=== PATIENT | male | born 1975 | race Caucasian/White ===

== ENCOUNTER 2023-01-09 10:37 | Emergency (ER) | payer OTHER ==
[~2023-01-09] VITALS: Ht 180.3 cm; Wt 85.7 kg
[2023-01-09 10:46] VITALS: BP 123/76
--- NOTE | 2023-01-09 11:37 | NUR ---
DR MAIER AT BEDSIDE.
--- NOTE | 2023-01-09 12:21 | NUR ---
CALLED DR MACDONALD REGARDING THE PT FOR A TELE PSYCH EVAL PER DR MAIER.
--- NOTE | 2023-01-09 12:30 | NUR ---
LIVIER ADAMS STATES PT IS MEDICALLY CLEARED.
--- NOTE | 2023-01-09 12:37 | NUR ---
SPOKE WITH DR QUIGLEY THAT IS COVERING DR MACDONALD FOR [facility] EVAL HE WILL CALL BACK WHEN HE GETS TO HIS OFFICE.
--- NOTE | 2023-01-09 12:37 | NUR ---
47 Y/O M BIB SELF C/O SI, PLANNED TO DRINK AND TAKE PILLS THIS AM. PMH: BIPOLAR, DEPRESSION
--- NOTE | 2023-01-09 14:22 | NUR ---
CALLED DR LEMA OFFICE, LEFT A MESSAGE REGARDING TELE PHSYC. SPOKE WITH
--- NOTE | 2023-01-09 15:04 | NUR ---
TORRES ADAMS CALLED FOR TELEPSYCH, ZOOM ID: [id number], STATES HE WILL CALL US IN 30 MINUTES
--- NOTE | 2023-01-09 15:48 | NUR ---
PT IS BEING TELE PSYCH BY DR MACDONALD.
--- NOTE | 2023-01-09 15:51 | NUR ---
LAB AT BEDSIDE.
[2023-01-09 16:10] LABS: BASOPHILS # (AUTO) 0.1 K/uL (0.00-0.22); BASOPHILS % (AUTO) 1.1 % (0.0-2.0); EOSINOPHILS # (AUTO) 0.8 K/uL (0-0.4); EOSINOPHILS % (AUTO) 9.1 % (0.0-4.0); HEMATOCRIT 43.1 % (36-52); HEMOGLOBIN 14.6 g/dL (12.0-18.0); LYMPHOCYTES % (AUTO) 36.7 % (20.5-51.1); MEAN CORPUSCULAR HEMOGLOBIN 30 pg (27-31); MEAN CORPUSCULAR HGB CONC 34 g/dL (33-37); MEAN CORPUSCULAR VOLUME 89.4 fL (80-94); MONOCYTES # (AUTO) 0.6 K/uL (0.8-1.0); MONOCYTES % (AUTO) 7.8 % (1.7-9.3); NEUTROPHILS # (AUTO) 3.7 K/uL (1.8-7.7); NEUTROPHILS % (AUTO) 45.3 % (42.2-75.2); PLATELET COUNT (AUTO) 222 K/uL (140-450); RED BLOOD CELL COUNT(AUTO) 4.82 MIL/uL (4.20-6.10); RED CELL DISTRIBUTION WIDTH 13.9 % (11.6-13.7); WHITE BLOOD COUNT (AUTO) 8.3 K/uL (4.8-10.8)
[2023-01-09 16:28] LABS: ALBUMIN 4.2 g/dL (3.4-5.0); ANION GAP 14.1 (8-16); CARBON DIOXIDE 26.2 mmol/L (21-32); CREATININE 1.3 mg/dL (0.6-1.3); POTASSIUM 4.3 mmol/L (3.5-5.1); TOTAL BILIRUBIN 0.4 mg/dL (0.0-1.0)
--- NOTE | 2023-01-09 16:31 | NUR ---
PT SPOUSE ANNELIESE [phone].
--- NOTE | 2023-01-09 17:04 | NUR ---
CALLED [facility] PER DR MACDONALD FOR THE PT TO BE EVALUATED FOR 50 AND PUT ON HOLD.
[2023-01-09 17:14] LABS: ACETAMINOPHEN < 0.5 ug/ml (10-30); SALICYLATE < 2.8 mg/dL (2.8-20.0)
--- NOTE | 2023-01-09 17:41 | NUR ---
[facility] PLACED THE PT ON HOLD OF 1724 ON 01/09/2023.
--- NOTE | 2023-01-09 19:16 | NUR ---
GAVE REPORT SARAH ABRAHAM.
--- NOTE | 2023-01-09 20:15 | NUR ---
gave report to Marva from [facility], awaiting on insurance approval before accepting pt
--- NOTE | 2023-01-09 20:25 | NUR ---
UA collected and sent to lab
[2023-01-09 20:57] LABS: APPEARANCE,URINE CLEAR (CLEAR); BILIRUBIN,URINE NEGATIVE (NEGATIVE); BLOOD, URINE NEGATIVE (NEGATIVE); COLOR,URINE YELLOW (YELLOW); LEUKOCYTE ESTERASE ,URINE NEGATIVE (NEGATIVE); NITRITE, URINE NEGATIVE (NEGATIVE); UGLUCOSE NEGATIVE (NEGATIVE)
--- NOTE | 2023-01-09 21:07 | NUR ---
[facility]. Call Center will call in the AM for any bed openings Has been fax to other facilities [facility] [place] [facility]
[2023-01-09 21:09] LABS: BARBITURATE, URINE NEGATIVE ng/ml (NEG <=200); BENZODIAZEPINE, URINE NEGATIVE ng/mL (NEG <=200); CANNABINOID, URINE NEGATIVE ng/mL (NEG <=50); COCAINE, URINE NEGATIVE ng/mL (NEG <=300); OPIATE, URINE NEGATIVE ng/mL (NEG <=2000); PHENCYCLIDINE SCREEN,URINE NEGATIVE ng/mL (NEG <=25)
--- NOTE | 2023-01-09 21:14 | NUR ---
[facility] contacted and left a message for toy at
--- NOTE | 2023-01-09 23:48 | NUR ---
[facility] arrived for pick-up
[2023-01-09 23:51] VITALS: BP 105/61
--- NOTE | 2023-01-09 23:57 | NUR ---
REPORT GIVEN TO [facility] FOR TRANSPORT TO [facility] AND [facility] FOR ADMISSION
[2023-01-10] MEDS ORDERED: ARIPiprazole 10 MG TAB PO SCH (09:00)
== END 2023-01-09 23:57 ==
LOC: MED 10:37
DX: R45.851 Suicidal ideations (principal); Z20.822 Contact with and (suspected) exposure to COVID-19; F31.9 Bipolar disorder, unspecified; Z88.0 Allergy status to penicillin
CPT/HCPCS: 36415; 80053; 80305; 81003; 85025; 87426; 87635; 93005; 99285; C9803; G0480; G0482

== ENCOUNTER 2023-11-27 18:38 | Emergency (ER) | payer OTHER ==
[~2023-11-27] VITALS: Ht 175.3 cm; Wt 78.5 kg
[2023-11-27] MEDS ORDERED: NACL 0.9% 1,000 ML IV ONE (18:45)
[2023-11-27] MEDS ORDERED: diphenhydrAMINE 50 MG/ML VIAL IVP ONE (18:45)
[2023-11-27] MEDS ORDERED: MORPHINE SULFATE 2 MG/ML SYR IVP STA (18:45)
[2023-11-27] MEDS ORDERED: ONDANSETRON 4 MG/2 ML VIAL IVP ONE (18:45)
[2023-11-27 19:15] VITALS: BP 130/72; PULSE 61; RESP 18; TEMP 98.2; O2SAT 99
[2023-11-27 19:29] LABS: BASOPHILS % (AUTO) 0.7 % (0.0-2.0); HEMATOCRIT 44.8 % (36-52); HEMOGLOBIN 15.4 g/dL (12.0-18.0); LYMPHOCYTES # (AUTO) 1.1 K/uL (2.0-11.5); LYMPHOCYTES % (AUTO) 15.5 % (20.5-51.1); MEAN CORPUSCULAR HEMOGLOBIN 31 pg (27-31); MEAN CORPUSCULAR HGB CONC 34 g/dL (33-37); MEAN CORPUSCULAR VOLUME 90.4 fL (80-94); MONOCYTES # (AUTO) 0.3 K/uL (0.8-1.0); MONOCYTES % (AUTO) 3.9 % (1.7-9.3); NEUTROPHILS # (AUTO) 5.8 K/uL (1.8-7.7); NEUTROPHILS % (AUTO) 79.9 % (42.2-75.2); PLATELET COUNT (AUTO) 166 K/uL (140-450); RED BLOOD CELL COUNT(AUTO) 4.96 MIL/uL (4.20-6.10); RED CELL DISTRIBUTION WIDTH 14.6 % (11.6-13.7); WHITE BLOOD COUNT (AUTO) 7.2 K/uL (4.8-10.8)
[2023-11-27] MEDS ORDERED: MORPHINE SULFATE 2 MG/ML SYR ONE (19:53)
[2023-11-27] MEDS ORDERED: ONDANSETRON 4 MG/2 ML VIAL ONE (19:53)
[2023-11-27] MEDS ORDERED: diphenhydrAMINE 50 MG/ML VIAL ONE (19:54)
[2023-11-27 19:55] LABS: ALBUMIN 3.8 g/dL (3.4-5.0); ANION GAP 13.4 (8-16); CALCIUM 9.2 mg/dL (8.5-10.1); CREATININE 1.1 mg/dL (0.6-1.3); POTASSIUM 4.4 mmol/L (3.5-5.1); TOTAL BILIRUBIN 0.4 mg/dL (0.0-1.0); TOTAL PROTEIN, SERUM 8.7 g/dL (6.4-8.2)
[2023-11-27] MEDS ORDERED: FAMO-90 PO (20:07)
[2023-11-27] MEDS ORDERED: ONDA-188 PO (20:07)
[2023-11-27] MEDS ORDERED: HYDR25CA1 PO (20:07)
[2023-11-27] MEDS ORDERED: MAG355OR2 PO (20:07)
[2023-11-27 21:14] VITALS: BP 134/80; PULSE 67; RESP 19; O2SAT 98
== END 2023-11-27 21:14 | disposition home or self-care (01) ==
LOC: MED 18:38
DX: R11.2 Nausea with vomiting, unspecified (principal); R10.32 Left lower quadrant pain; F17.200 Nicotine dependence, unspecified, uncomplicated; Z79.899 Other long term (current) drug therapy; Z88.0 Allergy status to penicillin
CPT/HCPCS: 36415; 74176; 80053; 83690; 85025; 96361; 96374; 96375; 99285; J1200; J2270; J2405; J7030

== ENCOUNTER 2023-12-31 12:29 | Emergency (ER) | payer OTHER ==
[~2023-12-31] VITALS: Ht 175.3 cm; Wt 72.6 kg
[~2023-12-31 12:29] MED LIST: FAMO-90 PO; HYDR25CA1 PO; MAG355OR2 PO; ONDA-188 PO
[2023-12-31 12:39] VITALS: BP 116/58; PULSE 95; RESP 18; TEMP 98; O2SAT 97
[2023-12-31 14:16] LABS: APPEARANCE,URINE CLEAR (CLEAR); BILIRUBIN,URINE NEGATIVE (NEGATIVE); BLOOD, URINE NEGATIVE (NEGATIVE); COLOR,URINE YELLOW (YELLOW); LEUKOCYTE ESTERASE ,URINE NEGATIVE (NEGATIVE); NITRITE, URINE NEGATIVE (NEGATIVE); PROTEIN,URINE NEGATIVE (NEGATIVE); UGLUCOSE NEGATIVE (NEGATIVE); UROBILINOGEN,URINE 0.2 EU/dL (0.2 - 1)
[2023-12-31 14:48] LABS: BASOPHILS # (AUTO) 0.1 K/uL (0.00-0.22); BASOPHILS % (AUTO) 1.1 % (0.0-2.0); EOSINOPHILS # (AUTO) 0.4 K/uL (0-0.4); EOSINOPHILS % (AUTO) 4.9 % (0.0-4.0); HEMATOCRIT 42.2 % (36-52); HEMOGLOBIN 14.4 g/dL (12.0-18.0); LYMPHOCYTES # (AUTO) 2.2 K/uL (2.0-11.5); LYMPHOCYTES % (AUTO) 28.2 % (20.5-51.1); MEAN CORPUSCULAR HEMOGLOBIN 31 pg (27-31); MEAN CORPUSCULAR HGB CONC 34 g/dL (33-37); MEAN CORPUSCULAR VOLUME 90.7 fL (80-94); MONOCYTES # (AUTO) 0.4 K/uL (0.8-1.0); MONOCYTES % (AUTO) 5.6 % (1.7-9.3); NEUTROPHILS # (AUTO) 4.6 K/uL (1.8-7.7); NEUTROPHILS % (AUTO) 60.2 % (42.2-75.2); PLATELET COUNT (AUTO) 233 K/uL (140-450); RED BLOOD CELL COUNT(AUTO) 4.65 MIL/uL (4.20-6.10); RED CELL DISTRIBUTION WIDTH 14.7 % (11.6-13.7); WHITE BLOOD COUNT (AUTO) 7.6 K/uL (4.8-10.8)
[2023-12-31 14:58] LABS: ANION GAP 9.3 (8-16); CALCIUM 9.2 mg/dL (8.5-10.1); CARBON DIOXIDE 31.9 mmol/L (21-32); CREATININE 1.2 mg/dL (0.6-1.3); POTASSIUM 4.2 mmol/L (3.5-5.1)
[2023-12-31 15:01] LABS: ALBUMIN 3.7 g/dL (3.4-5.0); BILIRUBIN,DIRECT 0.1 mg/dL (0.0-0.3); TOTAL BILIRUBIN 0.4 mg/dL (0.0-1.0); TOTAL PROTEIN, SERUM 8.3 g/dL (6.4-8.2)
[2023-12-31] MEDS: NACL 0.9% 1,000 ML IV ONE (15:15)
[2023-12-31] MEDS: MORPHINE SULFATE 4 MG/ML SYR IVP ONE (15:16)
[2023-12-31] MEDS: ONDANSETRON 4 MG/2 ML VIAL IVP ONE (15:16)
[2023-12-31 15:24] VITALS: BP 118/80; PULSE 79; RESP 19; O2SAT 99
[2023-12-31] MEDS ORDERED: ONDA-188 PO (17:08)
[2023-12-31] MEDS ORDERED: ACET-8905 PO (17:08)
== END 2023-12-31 17:30 | disposition home or self-care (01) ==
LOC: MED 12:29
DX: R10.32 Left lower quadrant pain (principal); R11.2 Nausea with vomiting, unspecified; Z90.49 Acquired absence of other specified parts of digestive tract; Z79.899 Other long term (current) drug therapy; Z88.0 Allergy status to penicillin
CPT/HCPCS: 36415; 80048; 80076; 81003; 83690; 85025; 96361; 96374; 96375; 99285; J2270; J2405; J7030; Q9967

== ENCOUNTER 2024-04-12 13:23 | Emergency (ER) | payer OTHER ==
[~2024-04-12] VITALS: Ht 165.1 cm; Wt 83.9 kg
[~2024-04-12 13:23] MED LIST changes: +ACET-8905 PO
[2024-04-12 13:34] VITALS: BP 118/81; PULSE 101; RESP 16; TEMP 98.5; O2SAT 98
[2024-04-12 14:37] LABS: BASOPHILS # (AUTO) 0.1 K/uL (0.00-0.22); BASOPHILS % (AUTO) 0.5 % (0.0-2.0); EOSINOPHILS % (AUTO) 0.1 % (0.0-4.0); HEMATOCRIT 45.9 % (36-52); HEMOGLOBIN 15.4 g/dL (12.0-18.0); LYMPHOCYTES # (AUTO) 2.5 K/uL (2.0-11.5); LYMPHOCYTES % (AUTO) 15.1 % (20.5-51.1); MEAN CORPUSCULAR HEMOGLOBIN 30 pg (27-31); MEAN CORPUSCULAR HGB CONC 34 g/dL (33-37); MEAN CORPUSCULAR VOLUME 90.5 fL (80-94); MONOCYTES % (AUTO) 5.8 % (1.7-9.3); NEUTROPHILS # (AUTO) 12.9 K/uL (1.8-7.7); NEUTROPHILS % (AUTO) 78.5 % (42.2-75.2); PLATELET COUNT (AUTO) 246 K/uL (140-450); RED BLOOD CELL COUNT(AUTO) 5.08 MIL/uL (4.20-6.10); RED CELL DISTRIBUTION WIDTH 13.6 % (11.6-13.7); WHITE BLOOD COUNT (AUTO) 16.4 K/uL (4.8-10.8)
[2024-04-12 14:53] LABS: ANION GAP 12.7 (8-16); CALCIUM 9.4 mg/dL (8.5-10.1); CARBON DIOXIDE 28.5 mmol/L (21-32); CREATININE 1.2 mg/dL (0.6-1.3); POTASSIUM 3.2 mmol/L (3.5-5.1)
[2024-04-12] MEDS: NACL 0.9% 1,000 ML IV ONE (14:58)
[2024-04-12] MEDS: MORPHINE SULFATE 4 MG/ML SYR IVP ONE (14:59)
[2024-04-12] MEDS: ONDANSETRON 4 MG/2 ML VIAL IVP ONE (14:59)
[2024-04-12 15:00] LABS: ALBUMIN 4.1 g/dL (3.4-5.0); BILIRUBIN,DIRECT 0.1 mg/dL (0.0-0.3); TOTAL BILIRUBIN 0.6 mg/dL (0.0-1.0); TOTAL PROTEIN, SERUM 7.7 g/dL (6.4-8.2)
[2024-04-12] MEDS: POTASSIUM CHLORIDE 20% 40 MEQ/15 ML UDC PO ONE (15:38)
[2024-04-12] MEDS: PANTOPRAZOLE 40 MG INJ VIAL IVP ONE (15:43)
[2024-04-12] MEDS ORDERED: KETOROLAC 15 MG/ML VIAL ONE (15:54)
[2024-04-12] MEDS ORDERED: LIDOCAINE 5% 1 EA PATCH TP ONE (15:54)
[2024-04-12] MEDS: LIDOCAINE 5% 1 EA PATCH TP ONE (16:15)
[2024-04-12] MEDS: diphenhydrAMINE 50 MG/ML VIAL IVP ONE (16:17)
[2024-04-12] MEDS: KETOROLAC 30 MG/ML VIAL IVP ONE (16:17)
[2024-04-12] MEDS: METOCLOPRAMIDE 10 MG/2 ML INJ VIAL IVP ONE (16:17)
[2024-04-12 16:19] VITALS: O2SAT 98
[2024-04-12 16:27] LABS: APPEARANCE,URINE CLEAR (CLEAR); BILIRUBIN,URINE NEGATIVE (NEGATIVE); BLOOD, URINE NEGATIVE (NEGATIVE); COLOR,URINE YELLOW (YELLOW); LEUKOCYTE ESTERASE ,URINE NEGATIVE (NEGATIVE); NITRITE, URINE NEGATIVE (NEGATIVE); PH,URINE 6.5 (5.0-9.0); PROTEIN,URINE TRACE (NEGATIVE); UGLUCOSE NEGATIVE (NEGATIVE); UROBILINOGEN,URINE 0.2 EU/dL (0.2 - 1)
[2024-04-12 16:37] LABS: BACTERIA,URINE None Seen /HPF (None Seen); MUCUS,URINE None Seen /LPF (None Seen); RBC,URINE 0-5 /HPF (0-5); SQUAMOUS EPITHELIAL CELL,UR 0-3 (FEW) /LPF (0-3 (FEW)); TRICHOMONAS,URINE None Seen /HPF (None Seen); WBC,URINE 0-5 /HPF (0-5); YEAST,URINE None Seen /HPF (None Seen)
[2024-04-12] MEDS ORDERED: ONDA-188 SL (16:53)
[2024-04-12] MEDS ORDERED: CIPR500T4 PO (16:53)
[2024-04-12] MEDS ORDERED: METR-435 PO (16:53)
[2024-04-12] MEDS ORDERED: FAMO-90 PO (16:53)
[2024-04-12] MEDS ORDERED: LID5T TP (16:53)
[2024-04-12 17:11] VITALS: BP 118/81; PULSE 101; RESP 16; TEMP 98.5; O2SAT 98
== END 2024-04-12 17:11 | disposition home or self-care (01) ==
LOC: MED 13:23
DX: S22.39XA Fracture of one rib, unspecified side, initial encounter for closed fracture (principal); E87.6 Hypokalemia; D72.829 Elevated white blood cell count, unspecified; R11.2 Nausea with vomiting, unspecified; R19.7 Diarrhea, unspecified; R10.33 Periumbilical pain; Z79.1 Long term (current) use of non-steroidal anti-inflammatories (NSAID); Z79.899 Other long term (current) drug therapy; Z98.890 Other specified postprocedural states; Z88.0 Allergy status to penicillin; Z91.040 Latex allergy status; X58.XXXA Exposure to other specified factors, initial encounter; Y93.89 Activity, other specified; Y92.89 Other specified places as the place of occurrence of the external cause; Y99.8 Other external cause status
CPT/HCPCS: 36415; 74177; 80048; 80076; 81001; 83690; 85025; 96361; 96374; 96375; 99285; C9113; J1200; J1885; J2270; J2405; J2765; J7030; Q9967

== ENCOUNTER 2024-05-03 19:11 | Emergency (ER) | payer OTHER ==
[~2024-05-03] VITALS: Ht 175.3 cm; Wt 81.6 kg
[~2024-05-03 19:11] MED LIST changes: +CIPR500T4 PO; +LID5T TP; +METR-435 PO; +ONDA-188 SL
[2024-05-03 19:37] VITALS: BP 146/103; PULSE 92; RESP 18; TEMP 97.3; O2SAT 97
[2024-05-03 20:15] LABS: BASOPHILS # (AUTO) 0.1 K/uL (0.00-0.22); BASOPHILS % (AUTO) 0.9 % (0.0-2.0); EOSINOPHILS # (AUTO) 0.1 K/uL (0-0.4); EOSINOPHILS % (AUTO) 1.1 % (0.0-4.0); HEMATOCRIT 44.9 % (36-52); HEMOGLOBIN 15.1 g/dL (12.0-18.0); LYMPHOCYTES # (AUTO) 2.6 K/uL (2.0-11.5); LYMPHOCYTES % (AUTO) 27.8 % (20.5-51.1); MEAN CORPUSCULAR HEMOGLOBIN 30 pg (27-31); MEAN CORPUSCULAR HGB CONC 34 g/dL (33-37); MEAN CORPUSCULAR VOLUME 89.5 fL (80-94); MONOCYTES # (AUTO) 0.8 K/uL (0.8-1.0); MONOCYTES % (AUTO) 8.6 % (1.7-9.3); NEUTROPHILS # (AUTO) 5.7 K/uL (1.8-7.7); NEUTROPHILS % (AUTO) 61.6 % (42.2-75.2); PLATELET COUNT (AUTO) 264 K/uL (140-450); RED BLOOD CELL COUNT(AUTO) 5.02 MIL/uL (4.20-6.10); RED CELL DISTRIBUTION WIDTH 13.4 % (11.6-13.7); WHITE BLOOD COUNT (AUTO) 9.3 K/uL (4.8-10.8)
[2024-05-03 20:18] LABS: APPEARANCE,URINE CLEAR (CLEAR); BILIRUBIN,URINE 1+ (NEGATIVE); BLOOD, URINE NEGATIVE (NEGATIVE); COLOR,URINE YELLOW (YELLOW); LEUKOCYTE ESTERASE ,URINE NEGATIVE (NEGATIVE); NITRITE, URINE NEGATIVE (NEGATIVE); PROTEIN,URINE TRACE (NEGATIVE); UGLUCOSE NEGATIVE (NEGATIVE)
[2024-05-03 20:19] LABS: BACTERIA,URINE FEW /HPF (None Seen); HYALINE CASTS, URINE 1 /LPF (None Seen); ICTOTEST NEGATIVE (NEGATIVE); MUCUS,URINE 1+ /LPF (None Seen); RBC,URINE 0-5 /HPF (0-5); SQUAMOUS EPITHELIAL CELL,UR 0-3 (FEW) /LPF (0-3 (FEW)); TRICHOMONAS,URINE None Seen /HPF (None Seen); WBC,URINE 0-5 /HPF (0-5); YEAST,URINE None Seen /HPF (None Seen)
[2024-05-03] MEDS: NACL 0.9% 1,000 ML IV ONE (20:26)
[2024-05-03 20:29] LABS: ANION GAP 13.3 (8-16); CALCIUM 8.7 mg/dL (8.5-10.1); CREATININE 1.4 mg/dL (0.6-1.3); POTASSIUM 3.3 mmol/L (3.5-5.1); TOTAL BILIRUBIN 0.8 mg/dL (0.0-1.0); TOTAL PROTEIN, SERUM 7.6 g/dL (6.4-8.2)
[2024-05-03] MEDS: MORPHINE SULFATE 4 MG/ML SYR IVP ONE (20:32)
[2024-05-03] MEDS: ONDANSETRON 4 MG/2 ML VIAL IVP ONE (20:32)
[2024-05-03] MEDS ORDERED: ONDA-188 SL (21:24)
[2024-05-03] MEDS ORDERED: DICY-209 PO (21:24)
[2024-05-03 21:45] VITALS: BP 138/77; PULSE 89; RESP 20; TEMP 98; O2SAT 99
[2024-05-03] MEDS ORDERED: ONDA-190 PO (21:45)
== END 2024-05-03 21:45 | disposition home or self-care (01) ==
LOC: MED 19:11
DX: R10.32 Left lower quadrant pain (principal); R10.13 Epigastric pain; R11.2 Nausea with vomiting, unspecified; R19.7 Diarrhea, unspecified; F12.90 Cannabis use, unspecified, uncomplicated; Z98.890 Other specified postprocedural states; Z79.1 Long term (current) use of non-steroidal anti-inflammatories (NSAID); Z79.899 Other long term (current) drug therapy; Z88.0 Allergy status to penicillin; Z91.040 Latex allergy status
CPT/HCPCS: 36415; 74176; 80053; 81001; 83690; 85025; 96361; 96374; 96375; 99285; J2270; J2405; J7030

== ENCOUNTER 2024-05-05 19:58 | Emergency (ER) | payer OTHER ==
[~2024-05-05] VITALS: Ht 175.3 cm; Wt 81.6 kg
[~2024-05-05 19:58] MED LIST changes: +DICY-209 PO; +ONDA-190 PO
[2024-05-05 20:07] VITALS: BP 128/78; PULSE 89; RESP 14; TEMP 97.9; O2SAT 99
[2024-05-05 20:33] LABS: BASOPHILS # (AUTO) 0.1 K/uL (0.00-0.22); BASOPHILS % (AUTO) 1.1 % (0.0-2.0); EOSINOPHILS # (AUTO) 0.3 K/uL (0-0.4); HEMATOCRIT 41.7 % (36-52); LYMPHOCYTES # (AUTO) 3.3 K/uL (2.0-11.5); LYMPHOCYTES % (AUTO) 42.5 % (20.5-51.1); MEAN CORPUSCULAR HEMOGLOBIN 30 pg (27-31); MEAN CORPUSCULAR HGB CONC 34 g/dL (33-37); MONOCYTES # (AUTO) 0.6 K/uL (0.8-1.0); MONOCYTES % (AUTO) 7.5 % (1.7-9.3); NEUTROPHILS # (AUTO) 3.5 K/uL (1.8-7.7); NEUTROPHILS % (AUTO) 44.9 % (42.2-75.2); PLATELET COUNT (AUTO) 245 K/uL (140-450); RED BLOOD CELL COUNT(AUTO) 4.63 MIL/uL (4.20-6.10); RED CELL DISTRIBUTION WIDTH 13.6 % (11.6-13.7); WHITE BLOOD COUNT (AUTO) 7.8 K/uL (4.8-10.8)
[2024-05-05 20:49] LABS: ANION GAP 10.9 (8-16); CALCIUM 8.5 mg/dL (8.5-10.1); CARBON DIOXIDE 30.1 mmol/L (21-32); CREATININE 1.3 mg/dL (0.6-1.3)
[2024-05-05] MEDS: KETOROLAC 30 MG/ML VIAL IM ONE (21:08)
[2024-05-05 22:05] VITALS: BP 128/78; PULSE 88; RESP 14; TEMP 97.9; O2SAT 99
== END 2024-05-05 22:05 | disposition home or self-care (01) ==
LOC: MED 19:58
DX: R07.89 Other chest pain (principal); Z88.0 Allergy status to penicillin; Z91.040 Latex allergy status; Z79.899 Other long term (current) drug therapy
CPT/HCPCS: 36415; 71045; 80048; 84484; 85025; 93005; 96372; 99285; J1885

== ENCOUNTER 2024-06-04 00:10 | Emergency (ER) | payer OTHER ==
[~2024-06-04] VITALS: Ht 177.8 cm; Wt 83.9 kg
[2024-06-04 00:13] VITALS: BP 119/81; PULSE 87; RESP 16; TEMP 97.2; O2SAT 96
[2024-06-04 00:27] VITALS: BP 119/81; PULSE 87; RESP 16; TEMP 97.2; O2SAT 96
[2024-06-04] MEDS ORDERED: WATER STERILE 10 ML MC ONE (01:25)
[2024-06-04] MEDS: ceFAZolin 1,000 MG VIAL IM ONE (01:35)
[2024-06-04] MEDS: KETOROLAC 30 MG/ML VIAL IM ONE (01:36)
[2024-06-04] MEDS: ONDANSETRON 4 MG ODT PO ONE (01:36)
[2024-06-04] MEDS ORDERED: CEPH-588 PO (02:31)
== END 2024-06-04 02:35 | disposition home or self-care (01) ==
LOC: MED 00:10
DX: L03.311 Cellulitis of abdominal wall (principal); R11.2 Nausea with vomiting, unspecified; Z79.899 Other long term (current) drug therapy; Z88.0 Allergy status to penicillin; Z91.040 Latex allergy status
CPT/HCPCS: 96372; 99284; J0690; J1885; Q0162

== ENCOUNTER 2024-08-06 12:03 | Emergency (ER) | payer OTHER ==
[~2024-08-06] VITALS: Ht 175.3 cm; Wt 86.2 kg
[~2024-08-06 12:03] MED LIST changes: +CEPH-588 PO
[2024-08-06 12:23] VITALS: BP 122/57; PULSE 88; RESP 17; TEMP 98; O2SAT 97
[2024-08-06] MEDS: IBUPROFEN 800 MG TAB PO ONE (13:38)
== END 2024-08-06 13:38 | disposition left against medical advice (07) ==
LOC: MED 12:03
DX: M25.561 Pain in right knee (principal); M79.604 Pain in right leg; Z79.899 Other long term (current) drug therapy; Z88.0 Allergy status to penicillin; Z91.040 Latex allergy status
CPT/HCPCS: 99282

== ENCOUNTER 2024-09-01 22:28 | Emergency (ER) | payer OTHER ==
[~2024-09-01] VITALS: Ht 175.3 cm; Wt 88.5 kg
[2024-09-01 22:45] VITALS: BP 111/68; PULSE 77; RESP 18; TEMP 98.7; O2SAT 97
[2024-09-01 23:03] VITALS: BP 111/68; PULSE 77; RESP 18; TEMP 98.7
[2024-09-01 23:04] VITALS: O2SAT 97
[2024-09-01] MEDS: KETOROLAC 30 MG/ML VIAL IM ONE (23:51)
[2024-09-01] MEDS ORDERED: METH-1681 PO (23:58)
[2024-09-01] MEDS ORDERED: NAPR-337 PO (23:58)
[2024-09-01] MEDS ORDERED: LID5T TP (23:58)
== END 2024-09-02 00:02 | disposition home or self-care (01) ==
LOC: MED 22:28
DX: S29.012A Strain of muscle and tendon of back wall of thorax, initial encounter (principal); Z79.899 Other long term (current) drug therapy; Z88.0 Allergy status to penicillin; Z91.040 Latex allergy status; Z98.890 Other specified postprocedural states; X58.XXXA Exposure to other specified factors, initial encounter; Y92.89 Other specified places as the place of occurrence of the external cause; Y93.89 Activity, other specified; Y99.8 Other external cause status
CPT/HCPCS: 71045; 96372; 99283; J1885; Q0092